=== PATIENT | male | born 1995 | race Caucasian/White ===

== ENCOUNTER 2025-04-03 16:17 | Emergency (ER) | payer OTHER ==
[~2025-04-03] VITALS: Ht 182.9 cm; Wt 79.5 kg
[2025-04-03 16:39] VITALS: TEMP 98.2
[2025-04-03 18:46] VITALS: BP 114/68; PULSE 79; RESP 16; O2SAT 99
== END 2025-04-03 20:00 | disposition home or self-care (01) ==
LOC: EMS 16:17
DX: S00.83XA Contusion of other part of head, initial encounter (principal); Z91.030 Bee allergy status; Y08.89XA Assault by other specified means, initial encounter; Y93.89 Activity, other specified; Y92.89 Other specified places as the place of occurrence of the external cause; Y99.8 Other external cause status
CPT/HCPCS: 70486; 99284; Z7502